=== PATIENT | male | born 1955 | race Caucasian/White ===

== ENCOUNTER → 2017-07-27 | Outpatient (CLI) | payer BC ==
[2017-07-27] MEDS: BUPIVACAINE MPF 0.5% 10 ML VIAL for KCIC. IJ (12:20)
[2017-07-27] MEDS: IOHEXOL 300 MG/ML 50 ML VIAL. INT ART (12:20)
[2017-07-27] MEDS: LIDOCAINE 1% Multi-Dose 20 ML VIAL. ID (12:20)
[2017-07-27] MEDS: methylPREDNISolone ACETATE 40 MG/ML VIAL. INT ART (12:20)
== END | disposition home or self-care (01) ==
LOC: KCIC 11:01
DX: M25.551 Pain in right hip (principal); G89.29 Other chronic pain
CPT/HCPCS: 20610; 77002; J1030; Q9967